=== PATIENT | male | born 1965 | race Caucasian/White ===

== ENCOUNTER → 2023-10-02 12:01 | Outpatient (REF) | payer BC, SELFPAY ==
[2023-10-02 14:49] LABS: PSA, Total - Diagnostic 1.07 ng/ml (0.0-4.0)
== END ==
LOC: REG 12:01
PROVIDERS: ATTENDING PHYSICIAN Specialist; FAMILY PHYSICIAN Family Medicine
DX: N40.0 Benign prostatic hyperplasia without lower urinary tract symptoms (principal)
CPT/HCPCS: 36415; 84153

== ENCOUNTER 2024-02-26 03:48 | Emergency (ER) | payer BC, SELFPAY ==
[2024-02-26 03:49] VITALS: BP 152/88
[2024-02-26 05:30] VITALS: BP 152/88
--- NOTE | 2024-02-26 05:32 | ED.SKININJ ---
HPI-Injury
General
Chief Complaint: Skin Surface Trauma
Source: patient
Exam Limitations: none
Time Seen by Provider: 02/26/24 04:51
Nursing documentation reviewed up to this point in time: agreed with
History of Present Illness-Injury
Initial Injury comments:
This is a 58-year-old [id number]-zqsfekrm gentleman who states he was doing the dishes around 3:15 AM when he inadvertently lacerated distal aspect of his right thumb and mid aspect of his right index digit while cleaning a knife. He noted
immediate bleeding which stopped with local pressure. He denies weakness nor numbness. Moderate local pain at laceration sites.
Unsure as to his last Tdap believes this was greater than 10 years ago.
He and his of 1 year have planned vacation to [facility] for their moon/first anniversary, and they depart February 28.
Past History
Past History
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
ED Past Surgical History: Cholecystectomy, Orthopedic and Other (Kidney stones)
Social History
Tobacco: Non-smoker
Alcohol: None
Drug: None
Personal:
Living: with family
Skin Exam
Laceration
Right Distal Thumb:
Length in cm: 1.5
Orientation: horizontal
Type of Laceration: simple
Any active bleeding?: no active bleeding
Distal skin color and temperature: normal-warm & good color
Normal distal neurovascular exam: Yes
Range of motion: full
Right Middle Posterior Second Finger:
Length in cm: 1.5
Orientation: horizontal
Type of Laceration: simple
Any active bleeding?: no active bleeding
Distal skin color and temperature: normal-warm & good color
Normal distal neurovascular exam: Yes
Range of motion: full
Phy Exam
Physical Exam
Physical Exam:
PHYSICAL EXAMINATION:
General: no apparent distress, not acutely ill. 58-year-old gentleman appears his stated age, bright and alert, pleasant, appears in no acute distress.
Neuro: alert and oriented. no focal neurological deficits
Psychiatric: well kept. interactive and cooperative
Musculoskeletal: [Distal aspects of right thumb has a superficial linear laceration 1.5 cm, superficial dermal in depth. No active bleeding. Mild local tenderness to palpation. Right index digit has a 1.5 cm horizontal
laceration dorsal aspect just distal to the PIP joint. This laceration is dermal in depth. No active bleeding. There is no subcutaneous nor tendon involvement. Full range of motion without difficulty nor pain.]
Course
Orders/Labs/Results
Orders:
Orders
02/26/24 05:31
Tetanus/Diphth/Acelpertussis [Adacel] 0.5 ml IM .ONCE ONE
Vital Signs
Initial and Last Documented VS:
Initial Vital Signs
Temp Pulse Resp BP Pulse Ox
97.8 F 80 20 152/88 97
02/26/24 03:49 02/26/24 03:49 02/26/24 03:49 02/26/24 03:49 02/26/24 03:49
Last Documented Vital Signs
Temp Pulse Resp BP Pulse Ox
97.8 F 80 20 152/88 97
02/26/24 03:49 02/26/24 03:49 02/26/24 03:49 02/26/24 03:49 02/26/24 03:49
Procedures
Laceration Closure
Right Distal Thumb:
Status of Wound: clean
Size of Wound in cm: 1.5
Description of Wound Edges: sharp
Preparation: cleaned with saline
Revision/Debridement: routine- no revision and irrigate-direct pressure
Wound exploration: explored to base- no FB and no tendon involvement
Type of Closure: Dermabond-skin glue
Right Middle Posterior Second Finger:
Status of Wound: clean
Size of Wound in cm: 1.5
Description of Wound Edges: sharp
Preparation: cleaned with saline
Revision/Debridement: routine- no revision and irrigate-direct pressure
Wound exploration: explored to base- no FB and no tendon involvement
Type of Closure: Dermabond-skin glue
Additional information:
Steri-Strip applied over wound glue
MDM/Problems Addressed
Differential Diagnosis Includes:
Patient presents with 2 linear lacerations to right hand. These lacerations are dermal in depth, no active bleeding.
Copious normal saline solution irrigation.
Dermabond wound glue repair to both lacerations. Steri-Strip applied over index digit wound glue.
Discussed importance of keeping wounds clean and dry at least over the next 4 to 5 days.
May take Tylenol as needed for pain.
Will update Tdap.
Lacerations were relatively superficial, clean, no indication for antibiotics.
*Pulse Oximetry
Patient hypoxic: no
*Critical Care Note
Total Time (30-74mins, 75-104mins- exclusive of procedures): Not Applicable
ED Attending Note
-
Portions of this chart may have been created with voice recognition software.� Occasional wrong word or��sound alike� substitutions may have occurred due to the inherent limitations of voice recognition software.
Discharge Plan
Departure
Patient Disposition: Home (Routine Discharge)
Date of Disposition: 02/26/24
Time of Disposition: 05:41
Patient with high blood pressure during this ER visit?: Yes
Condition: Good
Discharge Problem:
Laceration right distal thumb, Laceration right index digit
Instructions: Laceration Repair With Glue (DC), Steri-Strips over Glued Wound, BLOOD PRESSURE
Prescriptions:
No Action
fexofenadine [Ethel] 180 MG tablet
180 mg PO HS
valacyclovir 500 MG tablet
500 mg PO BID 0RF
sulfamethoxazole-trimethoprim 1 TABLET tablet
1 tab PO BID 0RF
oxycodone-acetaminophen 5 MG/325 MG tablet
1 tab PO Q4HPRN PRN (Reason: pain) Qty: 12 0RF
amoxicillin-pot clavulanate 1 TABLET tablet
1 tab PO Q12 0RF
Activity Restrictions/Additional Instructions:
Keep glued wounds clean and dry at least over the next 4 to 5 days.
You may take Tylenol versus ibuprofen as needed for discomfort.
Follow-up with your primary care physician as needed.
Interventions
Interventions:
*Risk Screen - Suicide Last Done: 02/26/24 03:49
*General Assessment Last Done: 02/26/24 04:00
*Neglect/Abuse Screening Last Done: 02/26/24 03:49
ED- Fall Risk Assessment Last Done: 02/26/24 05:08
*ED COVID-19 Vaccine History Last Done: 02/26/24 05:07
ED-Skin Assessment Last Done: 02/26/24 04:00
Discharge Date and Time
Print Language: SLOVAK
[2024-02-26] MEDS: ADACEL 0.5 ML IM (05:38)
== END 2024-02-26 05:30 | disposition home or self-care (01) ==
LOC: EMR 03:48
PROVIDERS: EMERGENCY PHYSICIAN Emergency Medicine; FAMILY PHYSICIAN Family Medicine
DX: S61.011A Laceration without foreign body of right thumb without damage to nail, initial encounter (principal); S61.210A Laceration without foreign body of right index finger without damage to nail, initial encounter; W45.8XXA Other foreign body or object entering through skin, initial encounter; Z23 Encounter for immunization; K21.9 Gastro-esophageal reflux disease without esophagitis; K44.9 Diaphragmatic hernia without obstruction or gangrene; Z85.828 Personal history of other malignant neoplasm of skin; Z87.442 Personal history of urinary calculi; Z90.49 Acquired absence of other specified parts of digestive tract
CPT/HCPCS: 99282; 12001; 90471; 90715

== ENCOUNTER → 2024-06-08 12:43 | Outpatient (REF) | payer BC, SELFPAY ==
[2024-06-08 13:56] LABS: ALT (SGPT) 41 U/L (0-50); AST (SGOT) 32 U/L (17-59); Albumin 4.4 g/dl (3.5-5.0); Alkaline Phosphatase 58 U/L (38-126); Blood Urea Nitrogen 15 mg/dl (9-20); Calcium 9.5 mg/dl (8.4-10.2); Carbon Dioxide 27 mmol/L (22-30); Chloride 109 mmol/L (98-107); Glucose 108 mg/dl (70-99); Potassium 5.1 mmol/L (3.5-5.1); Sodium 144 mmol/L (135-145); Total Bilirubin 0.9 mg/dl (0.2-1.3); Total Protein 6.8 g/dl (6.3-8.2); eGFR > 60.00
== END ==
LOC: RCS 12:43
PROVIDERS: ATTENDING PHYSICIAN Psychiatry & Neurology Neurology
DX: Z13.6 Encounter for screening for cardiovascular disorders (principal); Z13.228 Encounter for screening for other metabolic disorders
CPT/HCPCS: 36415; 80053; 93005

== ENCOUNTER 2024-11-09 21:26 | Observation (INO) | payer BC, SELFPAY ==
[2024-11-09] VITALS (11 sets, daily range): BP systolic 90–147; BP diastolic 63–104; BMI 29.3; BMI 27.3
[2024-11-09 14:13] LABS: Hematocrit 39.8 % (39.0-52.0); Hemoglobin 14.8 g/dL (13.0-18.0); Mean Corp Hgb Conc. 37.2 g/dL (33.0-37.0); Mean Corpuscular Volume 82.1 fL (80.0-94.0); Nucleated Red Blood Cells % 0 % (-); Platelet Count 183 10^3/uL (130-400); Red Cell Dist. Width 12.5 % (11.5-14.5)
[2024-11-09] MEDS: MORPHINE SULFATE 4 MG IV ×2 (14:29→14:56)
--- NOTE | 2024-11-09 14:49 | ED.GENMED ---
History of Present Illness
General
Chief Complaint: Chest Pain
Time Seen by Provider: 11/09/24 14:13
History of Present Illness
History of Present Illness:
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 Patient is symptoms started about an hour prior to arrival. Patient notes that he was walking his dog earlier today and his dog got attacked
by another dog. He took the dog to the vet and after leaving the vet, was on the phone with his partner and started to have sharp and shooting left chest wall pain. Notes the pain is radiating to his back and reports tingling to all of his
extremities. Denies any known cardiac history. Patient called the ambulance, received aspirin and nitroglycerin with minimal relief. Denies any abdominal pain or chest symptoms. Denies additional complaints
Past History
Past History
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
ED Past Surgical History: Cholecystectomy, Orthopedic and Other (Kidney stones)
Social History
Tobacco: Non-smoker
Alcohol: None
Drug: None
Personal:
Living: with family
Phy Exam
Physical Exam
Physical Exam:
General: No acute distress, slightly uncomfortable secondary to pain
HEENT: protecting airway
Neck: appears supple
CV: Normal heart rate, regular rhythm. Reproducible tenderness to the left chest wall.
Resp: No accessory muscle use, no increased work of breathing, lungs clear to auscultation bilaterally
Abd: Soft and non-distended, no tenderness to palpation, normal bowel sounds
Extremities: No deformities, no swelling, no erythema, pulses and sensation intact to distal extremity
Neuro: alert, no focal neurologic deficit
: deferred
Rectal: deferred
Psych: Normal affect
Skin: Intact
Scores
Heart Score for Chest Pain Patients
STEMI patient?: No
History: Moderately Suspicious
ECG: Normal
Age: >45 - <65 years
Risk Factors: No Risk Factors
Troponin: </= Normal Limit
Heart Score for Chest Pain Patients: 2
Heart Score Risk: 2.5% MACE over next 6 weeks
Course
Orders/Labs/Results
Orders:
Orders
11/09/24 14:04
EKG [Electrocardiogram (*1)] Urgent
Reason for Study: Tachycardia
EKG- Treatment ONCE
11/09/24 14:07
Comprehensive Metabolic Panel Urgent
11/09/24 14:08
Complete Blood Count/With Diff Urgent
Troponin I Urgent
11/09/24 14:23
Electrocardiogram (*1) Stat
Comment: ALREADY DONE IN ED
11/09/24 14:25
CT Chest/abd/pelvis Angio W/wo Urgent
Comment:
Reason For Exam: r/o dissection, crushing CP to back
Morphine Sulfate 4 mg IV NOW STA
11/09/24 14:52
Morphine Sulfate 4 mg IV NOW STA
11/09/24 16:45
Ketorolac [Toradol] 15 mg IV NOW STA
11/09/24 17:00
Electrocardiogram (*1) Urgent
Reason for Study: Chest Pain
EKG- Treatment ONCE
11/09/24 17:03
Troponin I Urgent
11/09/24 20:00
Electrocardiogram (*1) Urgent
Reason for Study: Chest Pain
EKG- Treatment ONCE
11/09/24 20:06
Troponin I Urgent
11/09/24 20:30
Admit/Transfer Patient As Directed
Co-Sign Provider:
Level of Care: Observation services
Assign to:: Telemetry
Physician / Group: Tomas Correa
Diagnosis: chest pain
Reason for Telemetry: Chest Pain syndromes
Date to Stop Telemetry: 11/11/24
Time to Stop Telemetry: 11:00
PRN Pain Medication Management As Directed
May give lesser potent ordered pain med per pt: Yes
preference::
Protocol:: Medication orders for pain may be administered in a
manner that supports deferring to patient preference
when the pt is:
- Requesting an ordered lesser potent pain medication.
Least to most potent pain medications are defined
as: acetaminophen < NSAID < tramadol < opioids
(morphine, oxycodone, hydromorphone).
- Requesting a lesser dose of the same medication IF
ORDERED.
- Requesting a less intrusive route of administration
if both routes are prescribed by the provider (PO <
IV).
11/09/24 20:33
Code Status As Directed
Resuscitation Status: Full Code
11/09/24 21:18
MRSA Screen Routine
BENNY Source: Nose
Specimen Description:
Comment: per protocol
11/11/24 11:00
DC Protocol for Telemetry ONCE
Abnormal Lab Results
11/09/24 11/09/24 11/09/24
14:07 14:08 20:06
MCHC 37.2 H g/dL
(33.0-37.0)
Monocytes % 10.2 H %
(1.7-9.3)
Chloride 109 H mmol/L
(98-107)
Carbon Dioxide 20 L mmol/L
(22-30)
BUN 22 H mg/dl
(9-20)
Glucose 111 H mg/dl
(70-99)
Calcium 10.4 H mg/dl
(8.4-10.2)
Troponin I 0.037 H* D ng/ml
11/09/24 14:08
11/09/24 14:07
Vital Signs
Initial and Last Documented VS:
Initial Vital Signs
Temp Pulse Resp BP Pulse Ox
97.9 F 97 22 90/63 97
11/09/24 14:04 11/09/24 14:04 11/09/24 14:04 11/09/24 14:04 11/09/24 14:04
Last Documented Vital Signs
Temp Pulse Resp BP Pulse Ox
97.9 F 56 22 112/74 97
11/09/24 14:04 11/09/24 21:45 11/09/24 21:45 11/09/24 21:00 11/09/24 21:19
MDM/Problems Addressed
MDM/Problems Addressed:
59-year-old male presenting to the emergency department with acute onset of chest pain. Vital signs on arrival significant for mild hypotension.
On exam, patient is in no acute distress, however uncomfortable secondary to pain. Given presenting complaint, EKG obtained immediately upon arrival. No obvious ischemia. EKG repeated given his discomfort about 5 minutes later, again no ischemic
abnormality. Patient does note that pain started after an emotional situation with his dog, possible underlying anxiety versus panic component. Patient does have reproducible pain to the left chest wall, possible musculoskeletal component.
However patient also notes the pain is radiating to his back. Aortic pathology is a consideration. Will plan for emergent CT of the chest as well as laboratory analysis. Morphine administered for pain.
16:40 - Patient notes some improvement of pain, however still present. CT is without any acute abnormality. Initial troponin is negative. Vitals remain stable. Will try Toradol for pain and repeat troponin
18:00 -second opponent with positive delta. Patient remains symptomatic. This reason feel warrants admission for cardiac monitoring and troponin trending. Cardiology made aware
*Pulse Oximetry
SaO2: 97
Oxygen Mode of Delivery: Room air
Patient hypoxic: no
*EKG
Interpreted by ED Provider?: Yes
EKG Intrepretation Date: 11/09/24
EKG Intrepretation Time: 14:57
Interpretation: normal
Heart Rate: 98
Rate: normal
Rhythm: sinus
[place]: normal axis
Interval: normal interval
QRS Pattern: normal QRS
Ischemia: no ischemia
*Critical Care Note
Total Time (30-74mins, 75-104mins- exclusive of procedures): Not Applicable
ED Attending Note
-
Portions of this chart may have been created with voice recognition software.� Occasional wrong word or��sound alike� substitutions may have occurred due to the inherent limitations of voice recognition software.
Discharge Plan
Departure
Patient Disposition: Admit
Date of Disposition: 11/09/24
Time of Disposition: 19:17
Presentation/result/management discussed w/ accepting MD/DO: Hospitalist
Condition: Good
Discharge Problem:
Chest pain
Interventions
Interventions:
*Risk Screen - Suicide Last Done: 11/09/24 14:04
*General Assessment Last Done: 11/09/24 14:04
*Neglect/Abuse Screening Last Done: 11/09/24 14:04
*ED- Fall Risk Assessment Last Done: 11/09/24 14:04
*ED COVID-19 Vaccine History Last Done: 11/09/24 14:04
ED- Cardiac Assessment Last Done: 11/09/24 14:16
[2024-11-09 14:50] LABS: ALT (SGPT) 26 U/L (0-50); AST (SGOT) 30 U/L (17-59); Albumin 4.6 g/dl (3.5-5.0); Alkaline Phosphatase 51 U/L (38-126); Blood Urea Nitrogen 22 mg/dl (9-20); Calcium 10.4 mg/dl (8.4-10.2); Carbon Dioxide 20 mmol/L (22-30); Chloride 109 mmol/L (98-107); Estimated Creatinine Clearance 73 ml/min; Glucose 111 mg/dl (70-99); Potassium 4.3 mmol/L (3.5-5.1); Sodium 139 mmol/L (135-145); Total Protein 7.2 g/dl (6.3-8.2); eGFR > 60.00
[2024-11-09 15:01] LABS: Troponin I < 0.012 ng/ml
[2024-11-09] MEDS: TORADOL 15 MG IV (17:06)
[2024-11-09 17:37] LABS: Troponin I 0.023 ng/ml
--- NOTE | 2024-11-09 19:38 | HPS.HSE ---
Addendum entered and electronically signed by Tomas Correa DO 11/09/24 21:44:
Patient seen and examined independently. Agree with findings and plan as set forth by RAMANDEEP Garibay.
Patient is a 59y M with no significant PMH who presents to ED complaining of sharp, left-sided chest pain that started this evening. Patient states that he was walking his dog (holding leash in his L hand) when his dog was attacked by another
dog. He struggled to separate the dogs - eventually releasing his dog who ran home. Patient took his dog to vet for evaluation. While driving home, he noted onset of severe, sharp / stabbing chest pain in the L near the sternum. He denies any
associated SOB, nausea, diaphoresis, etc. Patient denies any prior history of cardiac disease, ID, etc.
Here in the ED, he has some mild residual pain along the breastbone on the L.
Ass:
Atypical Chest Pain
Abnormal Troponin
Plan:
Observe overnight for further evaluation and treatment.
Patient significantly tender on exam. Along with mechanism of injury, suspect this is musculoskeletal pain.
Troponin is non-negative and gradually trending up. Continue to follow.
Cardiology evaluation in the AM for additional recommendations.
Original Note:
Family Physician
-
Family Physician: Tyler Gunter
Chief Complaint
-
left sided chest pain
History of Present Illness
Patient is a 59-year-old male with no significant past medical history who presented to [facility] ED for evaluation of acute onset left sided chest pain that radiated to midaxillary line and to back. Patient states chest pain was acute onset, sharp in
nature and described as feeling like 'a sharp hot knife stabbing me.' He states he was out walking his dog earlier in day, when she was attacked by another dog. He was holding leash with left hand, leash broke and he wrestled with other larger dog
and held down until injection molding machine operator arrived. Following giving report he ran home after his dog. He then drove dog to vet and on his ride home from vet is when he had sudden onset of pain. He continues to have pain now but has improved s/p morphine and toradol.
Denies any dizziness, cough, shortness of breath, nausea, vomting or diaphoresis.
Medical History
Past Medical History
Past Medical History: Reports Other
Additional Past Medical History:
CRPS left hand
Past Surgical History: Reports Other
Additional Past Surgical History:
R hand surgery.2023
bilat knee surgeries() 05/12/2010
L-shoulder impingement repair() 05/12/2010
appendectomy() 08/09/2014
L-elbow tendon repair() 05/12/2010
R-wrist tendon surgery 1995() 05/12/2010
Left Shoulder RC repair, SAD 03/2018
vasectomy and subsequent vasectomy reversal
Ureteroscopic stone extraction
hemorrhoidectomy
L Thumb reconstruction DEC 2019
Cholecystectomy
cataract-lens implants 09/2021
Left TKA 09/24/2022 [facility]
Social History
Tobacco: Non-smoker
Alcohol: Occasional
Drug: None
Personal:
Living: With Family
Employment: Retired
Family History
Family History: Not pertinent
Allergies / Home Medications
Allergies reflects when Allergies were last updated in [facility].
Home Medications with original date entered in [facility]
Allergy/Medication List:
Allergies
Allergy/AdvReac Type Severity Reaction Status Date / Time
metaproterenol (From Alupent) Allergy Unknown Verified 11/09/24 14:13
seasonal Allergy Itching Uncoded 11/09/24 14:13
Home Medications
azelastine 137 mcg (0.1 %) nasal spray 1 spray intranasal BID 11/09/24
berberine-herbal drugs capsule 1 cap PO DAILY 11/09/24
cholecalciferol (vitamin D3) 25 mcg (1,000 unit) tablet (Vitamin D3) 25 mcg PO DAILY 11/09/24
cinnamon bark extract 500 mg tablet 500 mg PO DAILY 11/09/24
coQ10 (ubiquinol) 100 mg capsule 100 mg PO DAILY 11/09/24
cyanocobalamin (vitamin B-12) 1,000 mcg tablet 1,000 mcg PO DAILY 11/09/24
gabapentin 600 mg tablet 600 mg PO BID 11/09/24
loratadine 10 mg tablet (Claritin) 10 mg PO DAILYPRN PRN alleriges 11/09/24
omega 4-lnl-uyq-fish oil 1,000 mg (120 mg-180 mg) capsule (Fish Oil) 1 cap PO DAILY 11/09/24
red yeast rice 600 mg capsule 600 mg PO DAILY 11/09/24
thiamine HCl (vitamin B1) 100 mg tablet 100 mg PO DAILY 11/09/24
turmeric 400 mg capsule 400 mg PO DAILY 11/09/24
Review of Systems
-
History Source: Patient
Constitutional: Reports No Symptoms
EENT: Reports No Symptoms
Respiratory: Denies Trouble Breathing
Cardiac: Reports Chest Pain; Denies Diaphoresis, Palpitations or Syncope
Abdomen/GI: Reports No Symptoms
: Reports No Symptoms
Musculoskeletal: Reports No Symptoms
Skin: Reports No Symptoms
Neurological: Reports No Symptoms
Endocrine: Reports No Symptoms
Hematologic/Lymphatic: Reports No Symptoms
Psych: Reports No Symptoms
Physical Exam
Vital Signs
Vital Signs
Temp Pulse Resp BP Pulse Ox
97.9 F 71 15 101/65 97
11/09/24 14:04 11/09/24 18:45 11/09/24 18:45 11/09/24 18:00 11/09/24 14:51
Physical Exam
General: Well Developed, Well Nourished, No Apparent Distress and Conversant
HEENT: NormoCephalic, Moist mucous membranes and Atraumatic
Respiratory: Clear and Non Labored Respirations
Cardiac: S1/S2 and Regular Rhythm; No Murmur, Rub or Gallop
Breast: Deferred by me
GI: Soft, Non Tender, Non Distended and Normal Bowel Sounds; No Organomegaly
Rectal: Deferred by Provider
Genito-urinary: Deferred by me
Musculoskeletal: No Clubbing, No Cyanosis and No Edema
Skin: Warm and IV/Catheter Site; No Rash
Neuro: Awake, AO x 3 and Nonfocal/grossly intact
Hematologic/Lymphatic: No Lymphadenopathy
Psych: Calm and Intact Judgment/Insight
Laboratory Results
-
11/09/24 14:08
11/09/24 14:07
Laboratory Results
Total Bilirubin 1.0 mg/dl (0.2-1.3) 11/09/24 14:07
AST 30 U/L (17-59) 11/09/24 14:07
ALT 26 U/L (0-50) 11/09/24 14:07
Alkaline Phosphatase 51 U/L (38-126) 11/09/24 14:07
Troponin I 0.023 ng/ml D 11/09/24 17:03
Data Reviewed
-
CT Scan: Report Reviewed by me (Chest/Abd/Pel: 1. Negative for aortic dissection. Negative for aortic aneurysmal dilation. 2. No acute pulmonary process identified. Small amount of probable scarring in the right upper lobe likely related to the
inflammatory process seen on previous CT examination. 3. Mild wall thickening of )
Medical Tests (Nuc Med, Echo, EKG etc): Report Reviewed by me (EKG: SINUS BRADYCARDIA Poor R-wave progression ; consider anterior infarct, lead placement, or normal variant)
Lab Data: Labs Reviewed by me (trop <0.012, 0.023)
Impression/Plan
-
IMPRESSION/PLAN:
#chest pain
trop <0.012, 0.023
EKG: SINUS BRADYCARDIA
Poor R-wave progression ; consider anterior infarct, lead placement, or normal variant
Chest/Abd/Pel CT: 1. Negative for aortic dissection. Negative for aortic aneurysmal dilation.
2. No acute pulmonary process identified. Small amount of probable scarring in the right upper lobe likely related to the inflammatory process seen on previous CT examination.
3. Mild wall thickening of the urinary bladder, question outlet obstruction. Cystitis considered less likely. Otherwise, no signs of an acute intra-abdominal process.
- Admit to telemetry for observation
- Consult Cardiology
- trend troponin
Code status: full code
DVT prophylaxis: Lovenox Sq
[2024-11-09 20:46] LABS: Troponin I 0.037 ng/ml
[2024-11-09] MEDS: NEURONTIN 600 MG PO (22:48)
[2024-11-09] MEDS: TORADOL 10 MG IV (23:29)
[2024-11-10 00:27] LABS: Troponin I 0.027 ng/ml
--- NOTE | 2024-11-10 01:01 | PTCARENOTE ---
Received pt into room 2241 from ED RN via stretcher @ approx 2200. Tele applied to pt, SB-SR, HR 50's-60's. pt with c/o left sided chest pain. Describes it as a throbbing and rates it 09/10. PRN IV Toradol administered per order--see MAY. pt
verbalizes relief. Trop and EKG obtained per order. Admission questions completed. plan of care reviewed with pt. pt oriented to room and call long. Encouraged pt to call RN with any questions/concerns. Call long within reach.
[2024-11-10 02:58] VITALS: BP 104/66
[2024-11-10 04:00] LABS: HDL Cholesterol 49 mg/dl; LDL Cholesterol, Calculated 128 mg/dl; Very Low Density Lipoprotein 13 mg/dl (0-30)
[2024-11-10 04:10] LABS: Troponin I 0.018 ng/ml
[2024-11-10 07:56] VITALS: BP 103/76
[2024-11-10] MEDS: NEURONTIN 600 MG PO (07:58)
[2024-11-10] MEDS: ANESTHETIC LOZENGE 1 LOZENGE PO (08:47)
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
[2024-11-10 10:37] LABS: Glycohemoglobin (HgbA1c) 5.3 % (4.0-5.6)
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
[2024-11-10 13:43] VITALS: BP 105/76
--- NOTE | 2024-11-10 14:00 | PTCARENOTE ---
~7071-2003: Handoff report received from nightshift RN. Pt AOx4, NSR on tele 60s, SBP 100s, RA satting 85%. at bedside. Patient states pain of L chest/pectoral area is tolerable currently at a 3/10 and dull, however with palpation, deep
breathing, or moving the pain increases but then lessens with rest. Pt c/o sore throat, informed Dr. Bennett, PRN cepacol lozenges ordered and given. Cardiology in to see patient, patient is OK to eat breakfast at this time. All needs met, call
long within reach.
~5767-0875: Patient taken for stress echo via wheelchair. Patient left in stable condition.
~1807-1349: patient restuned via wheelchair from stress echo.
~1472-5012: Per cardiology, stress test appears 'fine' and he informed patient of results.
~1394-2599: patient independent in room. VSS, PIV and tle packs removed. DC paperwork reviewed with patient and . All questions answered as this time. Pt dc'd in stable condition.
== END 2024-11-10 14:00 | disposition home or self-care (01) ==
LOC: IVU 21:26
PROVIDERS: Emergency Medicine; Nurse Practitioner Family; ADMITTING PHYSICIAN Hospitalist; ATTENDING PHYSICIAN Internal Medicine; CONSULT PHYSICIAN Nuclear Medicine Nuclear Cardiology; EMERGENCY PHYSICIAN Student in an Organized Health Care Education/Training Program; FAMILY PHYSICIAN Family Medicine
DX: R07.89 Other chest pain (principal); E78.5 Hyperlipidemia, unspecified; Z79.899 Other long term (current) drug therapy
CPT/HCPCS: 71275; 74174; 80053; 80061; 83036; 84484; 85025; 87070; 93005; 93017; 93350; 96374; 96375; 96376; 99285; G0378; Q9967

== ENCOUNTER → 2024-11-17 08:01 | Outpatient (REF) | payer BC, SELFPAY | LOC: RAD 08:01 | PROVIDERS: ATTENDING PHYSICIAN Student in an Organized Health Care Education/Training Program | DX: R07.81 Pleurodynia (principal) | CPT/HCPCS: 71101 ==